=== PATIENT | female | born 1975 | race Caucasian/White ===

== ENCOUNTER 2018-02-12 15:09 | Emergency (ER) | payer OTHER, BC ==
[2018-02-12 15:34] LABS: #Basophils 0.1 thou/uL (0.0-0.2); #Lymphocytes 3.2 thou/uL (1.20-3.40); #Neutrophils 6.7 thou/uL (1.40-6.50); %Eosinophils 8.5 % (0.0-10.0); %Lymphocytes 26.7 % (21.0-51.0); %Neutrophils 55.8 % (42.0-75.0); Hemoglobin 13.8 g/dL (12.0-16.0); Mean Corpuscular HGB CONC 34.3 g/dL (32.0-36.0); Mean Corpuscular Hemoglobin 28.9 pg (27.0-31.0); Mean Corpuscular Volume 84.2 fL (78.0-98.0); Mean Platelet Volume 7.3 fL (7.4-10.4); Platelet Count 289 thou/uL (130-400); RBC Distribution Width 12.8 % (11.5-14.5); White Blood Cell (WBC) Count 11.9 thou/uL (4.8-10.8)
--- NOTE | 2018-02-12 15:44 | RAD ---
RADIOGRAPH CHEST 1 VIEW: HISTORY: A 42-year-old female with chest pain. FINDINGS: There are no air space densities, pulmonary edema, pneumothorax, or cardiomegaly. The lateral costop hrenic angles are sharp. IMPRESSION: No acute cardiopulmonary findings. jn [] POS: ADAIR
[2018-02-12 15:56] LABS: ALT (SGPT) 17 U/L (8-55); AST (SGOT) 15 U/L (5-34); Albumin 4.1 g/dL (3.5-5.0); Alkaline Phosphatase 132 U/L (40-150); Anion Gap 11 mmol/L (10-20); BUN (Urea Nitrogen) 10 mg/dL (7.0-18.7); CK (CPK) 40 U/L (29-168); Calc. Creatinine Clearance 0 mL/min (70-130); Calcium 9.3 mg/dL (7.8-10.44); Carbon Dioxide 26 mmol/L (22-29); Chloride 104 mmol/L (98-107); Estimated GFR-MDRD 77; Globulin 3.9 g/dL (2.4-3.5); Glucose 84 mg/dL (70-105); Lipase 21 U/L (8-78); Potassium 3.8 mmol/L (3.5-5.1); Sodium 137 mmol/L (136-145)
[2018-02-12 15:58] LABS: BHCG - Serum Negative (NEGATIVE); Pregs Control Background? CLEAR/WHITE (CLR/WHITE); Pregs Control Bar Appear? YES (CONTROL BAR)
[2018-02-12 16:01] LABS: CKMB 0.6 ng/mL (0-6.6); Troponin I Less than 0.010 ng/mL (< 0.028)
== END 2018-02-12 17:29 | disposition home or self-care (01) ==
LOC: ERS 15:09
DX: R00.2 Palpitations (principal); R07.9 Chest pain, unspecified; J45.909 Unspecified asthma, uncomplicated; Z79.899 Other long term (current) drug therapy
CPT/HCPCS: 71045; 80053; 82550; 82553; 83690; 84443; 84484; 84703; 85025; 85379; 93005; 96360

== ENCOUNTER 2018-07-07 06:41 | Outpatient (CLI) | payer OTHER, BC ==
--- NOTE | 2018-07-07 09:37 | ULT ---
ULTRASOUND ABDOMEN COMPLETE: HISTORY: Generalized abdominal pain in 42-year-old female, with nausea and vomiting. FINDINGS: Intraabdominal contents are poorly visualized because of body habitus. Liver: Diffusely increased echogenicity with signal drop out in the deep morales consistent with fatty liver. Gallbladder: Surgically absent. Common duct: Very poorly visualized. Spleen: No splenomegaly. Pancreas: Nonspecific sonographic appearance. Kidneys: No hydronephrosis. Abdominal aorta: Not visualized. Inferior vena cava: Not visualized. Ascites: None. IMPRESSION: 1. Hepatic steatosis. 2. Status post cholecystectomy. 3. Limited visualization of intraabdominal contents due to body habitus. ENEIDA Palacio POS: ADAIR
== END 2018-07-07 06:42 | disposition home or self-care (01) ==
LOC: BICULT 06:41
PROVIDERS: ATTEND Internal Medicine Gastroenterology
DX: R10.84 Generalized abdominal pain (principal); R11.0 Nausea; K21.9 Gastro-esophageal reflux disease without esophagitis; E66.01 Morbid (severe) obesity due to excess calories; K76.0 Fatty (change of) liver, not elsewhere classified; Z90.49 Acquired absence of other specified parts of digestive tract
CPT/HCPCS: 76700

== ENCOUNTER 2018-07-14 11:58 | Day surgery (SDC) | payer OTHER, BC ==
[2018-07-13 15:08] VITALS: BMI 47.2
[2018-07-14] MEDS ORDERED: PROPOFOL 200 MG/20 ML VIAL ONE (13:50)
--- NOTE | 2018-07-14 22:34 | OP ---
DATE OF PROCEDURE: 07/14/2018 PREPROCEDURE DIAGNOSES: 1. Epigastric right upper quadrant pain and left upper quadrant pain. 2. Normal ultrasound post cholecystectomy. 3. Normal chem profile and CBC. 4. Nonresponse PPI therapy. POSTPROCEDURE DIAGNOSIS: Normal EGD, biopsies taken for H pylori. RECOMMENDATIONS: Trial of Bentyl, low carb diet. Followup office 2 to 3 weeks. is contraindicated in this individual status post cholecystectomy, significant risk of pancreatitis. We have done that in the office already. ANESTHESIA: TIVA. DESCRIPTION OF PROCEDURE: The patient was informed of the risks, benefits, and possible complications of endoscopy including perforation, reaction to medication and aspiration, and informed consent was obtained. The patient was brought to the endoscopy suite, where she was sedated in the gradual fashion. Once she was comfortable, a bite block was placed into her oropharynx. The endoscope was advanced to the esophagus, stomach, second, and third portion of the duodenum and the scope was slowly removed. The esophagus, stomach, and duodenum were all normal. Biopsies were taken from the antrum of the stomach to rule out H pylori gastritis. Retroflexed views in the stomach were normal. The scope was removed. The patient tolerated the procedure well with no complications. Job ID: [id number]
== END 2018-07-14 16:00 | disposition home or self-care (01) ==
LOC: SDC 11:58
PROVIDERS: ATTEND Internal Medicine Gastroenterology
PROC: 0DB78ZX Excision of Stomach, Pylorus, Via Natural or Artificial Opening Endoscopic, Diagnostic (ICD-10-PCS; principal; 2018-07-14)
DX: K31.89 Other diseases of stomach and duodenum (principal); K21.9 Gastro-esophageal reflux disease without esophagitis; E66.01 Morbid (severe) obesity due to excess calories; Z68.42 Body mass index [BMI] 45.0-49.9, adult; Z79.52 Long term (current) use of systemic steroids; Z79.899 Other long term (current) drug therapy
CPT/HCPCS: 88305; 88312; J2704

== ENCOUNTER 2018-12-01 08:25 | Outpatient (CLI) | payer OTHER, BC | END 2018-12-01 08:26 | disposition home or self-care (01) | LOC: DTY/OP 08:25 | PROVIDERS: ATTEND Specialist | DX: Z01.818 Encounter for other preprocedural examination (principal); E66.01 Morbid (severe) obesity due to excess calories | CPT/HCPCS: 97802 ==

== ENCOUNTER 2019-04-04 12:13 | Emergency (ER) | payer OTHER, BC ==
[2019-04-04 12:38] LABS: #Basophils 0.1 thou/uL (0.0-0.2); #Eosinphils 0.9 thou/uL (0.0-0.7); #Lymphocytes 3.1 thou/uL (1.20-3.40); #Monocytes 0.9 thou/uL (0.11-0.59); #Neutrophils 6.8 thou/uL (1.40-6.50); %Basophils 0.8 % (0.0-1.0); %Eosinophils 7.8 % (0.0-10.0); %Lymphocytes 26.4 % (21.0-51.0); %Monocytes 7.5 % (0.0-10.0); %Neutrophils 57.5 % (42.0-75.0); Hemoglobin 13.8 g/dL (12.0-16.0); Mean Corpuscular HGB CONC 33.6 g/dL (32.0-36.0); Mean Corpuscular Hemoglobin 28.5 pg (27.0-31.0); Mean Corpuscular Volume 84.6 fL (78.0-98.0); Mean Platelet Volume 7.5 fL (7.4-10.4); Platelet Count 300 thou/uL (130-400); Red Blood Cell (RBC) Count 4.84 mill/uL (4.20-5.40); White Blood Cell (WBC) Count 11.8 thou/uL (4.8-10.8)
[2019-04-04] MEDS ORDERED: Ketorolac Tromethamine 60 MG/2 ML VIAL ONE (12:55)
[2019-04-04] MEDS ORDERED: Diazepam 10 MG/2 ML SYRINGE ONE (12:55)
[2019-04-04 12:56] LABS: Bacteria/HPF 4+ HPF (None Seen); Bilirubin Negative (Negative); Blood, Urine Negative (Negative); Clarity Turbid (Clear); Glucose, Urine (Dipstick) Normal (Negative); Leukocyte 25 Leu/uL (Negative); Nitrite Negative (Negative); Protein, Urine (Dipstick) 10 mg/dL (Neg-Trace); RBC/HPF 0-3 HPF (0-3); Urobilinogen Normal mg/dL (Less than 2)
[2019-04-04 12:58] LABS: Pregnancy Test - Urine (BHCG) Negative (Negative); Pregu Control Background? CLEAR/WHITE (CLR/WHITE); Pregu Control Bar Appear? YES (CONTROL BAR)
[2019-04-04 12:59] LABS: ALT (SGPT) 22 U/L (8-55); AST (SGOT) 18 U/L (5-34); Albumin 3.8 g/dL (3.5-5.0); Alkaline Phosphatase 116 U/L (40-110); Anion Gap 12 mmol/L (10-20); BUN (Urea Nitrogen) 8 mg/dL (7.0-18.7); Bilirubin, Total 0.9 mg/dL (0.2-1.2); Calc. Creatinine Clearance 0 mL/min (70-130); Calcium 9.4 mg/dL (7.8-10.44); Carbon Dioxide 25 mmol/L (22-29); Chloride 106 mmol/L (98-107); Estimated GFR-MDRD 72; Globulin 3.7 g/dL (2.4-3.5); Glucose 99 mg/dL (70-105); Protein, Total 7.5 g/dL (6.0-8.3); Sodium 139 mmol/L (136-145)
[2019-04-04] MEDS ORDERED: Ondansetron ODT 4 MG TAB ONE (13:05)
[2019-04-04] MEDS ORDERED: ISOVUE-370 76%-LOCM 1 ML ONE (13:18)
[2019-04-04] MEDS ORDERED: Morphine 4 MG/ML VIAL ONE ×2 (14:01→15:10)
[2019-04-04] MEDS ORDERED: cefTRIAXone\\ROCEPHIN 1 GM VIAL ONE (14:01)
[2019-04-04] MEDS ORDERED: Sodium Chloride 0.9% 100 ML ONE (14:01)
--- NOTE | 2019-04-04 14:55 | CT ---
CT ABDOMEN AND PELVIS WITH IV CONTRAST 04/04/2019 CLINICAL INFORMATION: Right flank pain with blood in urine. Surgical history includes cholecystectomy, hysterectomy, and ap pendectomy. Patient also surgical history involving the kidney. COMPARISON: 02/09/2010 Technique: Multiple contiguous axial CT images are obtained through the abdomen and pelvis with IV contrast. Cor onal reformatted images are provided. FINDINGS: Lower Chest: Minimal linear scar versus atelectasis at the left lung base Vessels: Abdominal aorta and iliac arteries are normal in caliber. Abdomen: Portal vein:Patent Gallbladder: Surgically absent. Liver: Diminished attenuation suggesting fatty infiltration. Spleen: Mildly prominent in AP dimensions but stable compared to study in 2009. Pancreas: within normal limits. Adrenals: within normal limits. Kidneys: No enhancing renal mass is seen. A subcentimeter hypodensity is seen in the posterior aspect midportion right kidney which is too small to characterize. No enhancing lesion is seen. There is no hydronephrosis, no ureteral calculi are seen bilaterally. No definitive renal calculus is apprecia dominga. Bowel: Scattered colonic diverticula are seen. Appendix: Not visualized. Patient reports history of prior appendectomy. Peritoneum: No ascites or free air; no fluid collection. Mesentery and Retroperitoneum: No enlarged mesenteric or retroperitoneal lymph nodes. Abdominal Wall: Tiny fat-containing umbilical hernia. Pelvis: Reproductive Organs: Evidence of hysterectomy. Pelvis within normal limits. Bladder: Mostly decompressed. Bones: within normal limits. IMPRESSION: 1. No acute findings are seen in the abdomen or pelvis. 2. Postsurgical changes related to cholecystectomy and hysterectomy. 3. Fatty infiltration of the liver. 4. Subtle subcentimeter too small to characterize hypodense lesion midportion right kidney. No enhanc ing renal lesion is seen. 5. Small fat-containing umbilical hernia.
== END 2019-04-04 16:19 | disposition home or self-care (01) ==
LOC: ERS 12:13
DX: N39.0 Urinary tract infection, site not specified (principal); M79.7 Fibromyalgia; J45.909 Unspecified asthma, uncomplicated; F41.9 Anxiety disorder, unspecified; Z79.51 Long term (current) use of inhaled steroids; Z79.899 Other long term (current) drug therapy; Z79.52 Long term (current) use of systemic steroids
CPT/HCPCS: 36415; 74177; 80053; 81003; 81015; 81025; 85025; 87086; 96361; 96365; 96372; 96375; 96376; J0696; J1885; J2270; J3360; J3490; Q0162; Q9966

== ENCOUNTER 2019-04-06 15:43 | Inpatient (IN) | payer OTHER, BC ==
[~2019-04-06 15:43] MED LIST: ISOVUE-370 76%-LOCM 1 ML ONE
[2019-04-06 16:24] LABS: #Basophils 0.1 thou/uL (0.0-0.2); #Monocytes 0.7 thou/uL (0.11-0.59); #Neutrophils 6.8 thou/uL (1.40-6.50); %Basophils 0.7 % (0.0-1.0); %Eosinophils 8.5 % (0.0-10.0); %Lymphocytes 25.8 % (21.0-51.0); %Monocytes 6.3 % (0.0-10.0); %Neutrophils 58.7 % (42.0-75.0); Hemoglobin 13.4 g/dL (12.0-16.0); Mean Corpuscular HGB CONC 32.9 g/dL (32.0-36.0); Mean Corpuscular Hemoglobin 27.9 pg (27.0-31.0); Mean Corpuscular Volume 84.9 fL (78.0-98.0); Mean Platelet Volume 7.5 fL (7.4-10.4); Platelet Count 301 thou/uL (130-400); Red Blood Cell (RBC) Count 4.81 mill/uL (4.20-5.40); White Blood Cell (WBC) Count 11.6 thou/uL (4.8-10.8)
[2019-04-06 16:43] LABS: ALT (SGPT) 19 U/L (8-55); AST (SGOT) 18 U/L (5-34); Albumin 3.9 g/dL (3.5-5.0); Alkaline Phosphatase 113 U/L (40-110); Anion Gap 14 mmol/L (10-20); BUN (Urea Nitrogen) 8 mg/dL (7.0-18.7); Bilirubin, Total 0.7 mg/dL (0.2-1.2); Calc. Creatinine Clearance 0 mL/min (70-130); Calcium 9.4 mg/dL (7.8-10.44); Carbon Dioxide 25 mmol/L (22-29); Chloride 107 mmol/L (98-107); Estimated GFR-MDRD 77; Globulin 3.6 g/dL (2.4-3.5); Glucose 89 mg/dL (70-105); Potassium 4.1 mmol/L (3.5-5.1); Protein, Total 7.5 g/dL (6.0-8.3); Sodium 142 mmol/L (136-145)
[2019-04-06] MEDS ORDERED: Ketorolac Tromethamine 30 MG/ML VIAL ONE (17:23)
[2019-04-06] MEDS ORDERED: Morphine 4 MG/ML VIAL ONE (17:23)
--- NOTE | 2019-04-06 18:34 | CT ---
CT OF ABDOMEN AND PELVIS PERFORMED WITH INTRAVENOUS CONTRAST ENHANCEMENT: 04/06/19 HISTORY: Left flank pain. History of UTI. The lung bases are clear of infiltrative process. There are fatty changes of the liver which measures 20 cm in length. The spleen is within normal limi ts of size. Pancreas region is unremarkable and gallbladder has been removed. Right and left adrenal glands and right and left kidneys are normal in size. No obstruction. No renal calculi. No evidence for pyelonephritis. No perinephric fat stranding. No significant periaortic or mesenteric adenopathy. CT OF PELVIS PERFORMED WITH CONTRAST ENHANCEMENT: There is no evidence of adenopathy, mass or free fluid. IMPRESSION: 1. No acute findings of the abdomen and pelvis. 2. Fatty change of the liver. 3. Postop cholecystectomy change. POS: NIR
[2019-04-06] MEDS ORDERED: HYDROmorphone 0.5 MG/0.5 ML SYRINGE ONE ×2 (19:36→23:36)
[2019-04-06] MEDS ORDERED: Diazepam 5 MG TAB ONE (20:17)
--- NOTE | 2019-04-06 22:45 | MRI ---
MRI Thoracic Spine W WO Con History: Pain Comparison: CT abdomen and pelvis same day Findings: Cord signal is normal. Intraosseous hemangioma of T7. No evidence for epidural abscess. No significant neural foraminal or spinal canal narrowing. Impression: No epidural abscess. No discitis osteomyelitis.
--- NOTE | 2019-04-06 22:49 | MRI ---
MRI Lumbar Spine W WO Con History: Pain Comparison: CT abdomen and pelvis same day Findings: No marrow infiltrative process. No discitis osteomyelitis. No epidural abscess. No signific ant spinal canal narrowing. Small disc osteophyte complex on the right at L3/L4 causes moderate neural foraminal narrowing and abutment of the exiting nerve root. Small broad-based posterior disc o steophyte complex L4/L5 causes mild bilateral neural foraminal narrowing. Impression: Low-grade spondylosis at L3/L4 and L4/L5. No epidural abscess. No discitis osteomyelitis.
[2019-04-07 01:16] VITALS: BMI 46.7
[2019-04-07] MEDS ORDERED: Acetaminophen 325 MG TAB PO PRN (01:22)
[2019-04-07] MEDS ORDERED: Ondansetron ODT 4 MG TAB SL PRN (01:22)
[2019-04-07] MEDS ORDERED: Ondansetron PF 4 MG/2 ML Vial IVP PRN ×2 (01:22→08:20)
[2019-04-07] MEDS ORDERED: HYDROcodone/Acetaminophen 5/325 mg Tablet PO PRN (01:22)
[2019-04-07] MEDS: HYDROcodone/Acetaminophen 5/325 mg Tablet PO PRN ×2 (05:01→10:12)
[2019-04-07] MEDS ORDERED: HYDROmorphone 0.5 MG/0.5 ML SYRINGE SLOW IVP PRN (08:20)
[2019-04-07] MEDS: predniSONE 5 MG TAB PO SCH (09:25)
[2019-04-07] MEDS: Fentanyl 100 MCG/2 ML VIAL SLOW IVP PRN ×3 (12:11→21:33)
--- NOTE | 2019-04-07 16:24 | RAD ---
Exam: 3 views lumbar spine HISTORY: Spondylolisthesis. Comparison: None FINDINGS: Five lumbar type vertebra. Lumbar spine vertebral body height is maintained. No fracture. No spondylolisthesis in the neutral position. No abnormal motion upon extension or flexion IMPRESSION: No evidence of spondylolisthesis. Transcribed Date/Time: 04/07/2019 4:49 PM
[2019-04-07] MEDS: Mometasone/Formoterol 120 PUFF INHALER INH SCH (18:08)
--- NOTE | 2019-04-07 18:27 | RAD ---
XR IVP WO Tomogram STANDARD History: Assess renal function Comparison: CT examination prior day Findings: The renal calyces are sharp. No stricture or mass. Urinary bladder is unremarkable. Possible small urethral diverticulum Impression: 1. Normal appearance of the renal collecting systems. 2. Possible small urethral diverticulum.
--- NOTE | 2019-04-07 22:09 | HP ---
CHIEF COMPLAINT: Intractable back and flank pain bilaterally. HISTORY OF PRESENT ILLNESS: The patient is a 43-year-old female who presents to the ER with bilateral flank pain for which she can get no relief. She presented initially to the ER on the previous Friday with these same complaints and was diagnosed with a UTI. She was begun on antibiotics, but since that time she has gotten steadily worse until she cannot tolerate the back pain. She states she has mild burning during urination, frequent urination. Denies any vaginal discharge. She reports having a temperature over 100 and that started initially on previous Friday and it gotten worse until she came to the emergency room the 1st time on Friday. The pain is bilateral, very intense to the lightest touch, pre-eruptive shingles have been considered, but it is bilateral. She does have a history of ureter reimplantation at the age of 4 and has had numerous renal infections, kidney infections since that time. She does not have an appendix or gallbladder. She has been on chronic steroid therapy for severe asthma. There is concern that she may have an occult spinal fracture causing this bilateral presentation of acute skin sensitivity and pain, this is intractable. It hurts for her to lay down, any pressure on the back and actually feels better when she is walking. She has had sweats, temperatures to 100.4. She has also had nausea and vomiting. Her pain has been treated with morphine and several other medications and has not been effective. She is being placed in the hospital for further evaluation and pain management. PAST MEDICAL HISTORY: Significant for the aforementioned urinary tract disorder requiring reimplantation of her ureter at the age of 4. She also has fibromyalgia and severe asthma requiring steroid therapy. She also has obstructive sleep apnea, severe allergies, chronic sinusitis, migraine headaches, GERD. She has had chest pain in the past, but she had a stress test that returned completely normal back in 2015. PAST MEDICAL HISTORY: Her prior surgeries include the aforementioned adenoidectomy, tonsillectomy, appendectomy, cholecystectomy and ureteral surgery at age of 4. She has also had a hysterectomy. PSYCHIATRIC HISTORY: Negative. SOCIAL HISTORY: She lives at her home with her family. Denies alcohol use, drug use. Does not smoke. FAMILY HISTORY: Significant for diabetes and hypertension. ALLERGIES: SHE HAS NO KNOWN DRUG ALLERGIES. MEDICATIONS: Include: 1. Albuterol nebulized every 4 hours as needed. 2. Dulera 100/5 two puffs daily. 3. Spiriva 18 mcg inhaled daily. 4. Prednisone 2 mg p.o. daily. 5. Dexilant 60 mg daily. 6. Gabapentin 300 mg b.i.d. 7. Tramadol 50 mg q.6 hours p.r.n. 8. She has been taking Keflex 500 mg q.i.d. REVIEW OF SYSTEMS: At the time of admission, she denies chills, but has had low-grade fever. Denies fatigue. HEENT: Denies sores, ulcers, or drainage from eyes, ears, nose, or throat. CARDIOVASCULAR: Denies chest pain or palpitations. RESPIRATORY: Chronically dyspneic, but denies cough. Recurrent wheezing. GI: Significant for severe abdominal pain suprapubically that moves around to her bilateral flank area. She reports nausea and vomiting, but denies constipation. She denies diarrhea. : Reports significant dysuria, but denies frequency. Denies blood in urine or stool. MUSCULOSKELETAL: Has severe back pain, bilateral flank pain, but has no history of trauma. SKIN: No new rashes or lesions. NEUROLOGIC: She feels lightheaded, but her mental status is intact. She denies any areas of hypesthesia, anesthesia, headache or paralysis. HEMOLYTIC/LYMPH: Denies any areas of swelling, ecchymosis or edema. PHYSICAL EXAMINATION: At the time of admission, blood pressure 115/83, pulse 102, respirations 16, temperature 98.9, pain at a 9/10 scale, O2 saturation 94% on room air. GENERAL: This is a morbidly obese female, alert, oriented, cooperative. HEENT: Normocephalic, atraumatic. Pupils are equal, round, and reactive to light. Extraocular muscles are intact. TMs, nares, and pharynx are clear. NECK: Supple. Trachea midline. No adenopathy. CHEST: Diminished breath sounds throughout, but no wheezing or rhonchi. BREAST: Deferred. HEART: Regular rate and rhythm without murmur. ABDOMEN: Exquisitely tender bilaterally, periumbilically down to the suprapubic area. BACK: Exquisite tenderness even to light touch in bilateral CVA areas on board. SKIN: Does not show any herpetic outbreak or lesions, ecchymotic areas of bruising. : Deferred. BREASTS: Deferred. MUSCULOSKELETAL: Noteworthy for the aforementioned back pain, but no painful joints in upper and lower extremities. Normal range of motion noted. SKIN: Has no outbreaks as previously mentioned. NEUROLOGIC: Cranial nerves are intact. Gait and cerebral function intact. Sensory exam, exquisitely tender to the lightest touch in bilateral CVA areas around suprapubically. LABORATORY DATA: Lab work thus far shows WBCs 11.6, hemoglobin 13.4, hematocrit 40.8, platelets at 301. Sodium 142, potassium 4.1, chloride 107, CO2 25, BUN is 8, creatinine 0.81 with a GFR of 77, glucose 89, calcium 9.4, alkaline phosphatase elevated slightly at 113, globulin elevated at 306. IMAGING: The lumbar spine x-ray shows no evidence of spondylolisthesis. Voiding cystourogram is still pending. The intravenous pyelogram shows normal appearance of the renal collecting systems with possible urethral diverticulum. MRI of the thoracic spine shows no epidural abscess or diskitis or osteomyelitis. MRI of the lumbar shows low-grade spondylosis at L3-L4 and L4-L5, but no abscess or diskitis or osteomyelitis either. The CT of the abdomen and pelvis shows no acute findings. Fatty liver is noted. ASSESSMENT: 1. Intractable costovertebral tenderness, pain that radiates to the suprapubic area. 2. History of cystitis/urinary tract infection with failed outpatient treatment. 3. Severe asthma. PLAN: Plan will be further evaluation with pain management and treatment, but there are suggestions and serial re-evaluation. Job ID: [id number]
--- NOTE | 2019-04-07 22:51 | CON ---
DATE OF CONSULTATION: 04/07/2019 REASON FOR CONSULTATION: Flank pain. HISTORY OF PRESENT ILLNESS: The patient is a 43-year-old female who presents with pain in the bilateral flank and lower back, which is severe and debilitating. The patient states that she had a urinary tract infection, which was complicated by a kidney infection approximately 2 weeks ago. She was placed on Bactrim for 1 wk. She was doing well until April 02 when she began to have severe bilateral flank pain which radiated down to the buttock and then also pain in the bilateral lower quadrants of the abdomen. This progressed and became more severe as the weekend went on. This was associated with nausea, vomiting, fever, and chills. She also felt dizzy. The pain was a pressure-like sensation was up to a 10/10 pain at times. She did admit to hematuria on April 03 and on the , the pain had increased to the point where she finally went to the emergency room. In the emergency room, they had ran some tests and placed her on Keflex and tramadol. She was sent home. However, the pain progressed over the week. She had also been placed on tramadol at this point, which she says did not help with her pain. The patient' s pain persisted until April 06 when she came back to the emergency room due to severe debilitating pain, which was uncontrolled, was admitted to the hospital. Overnight, she has had consistent pain, which waxes and wanes. She has been treated with Dilaudid and also fentanyl with very limited relief. She said the fentanyl 100 mcg IV seems to help for approximately 35 minutes and then the pain comes back. The pain is described as sharp and pressure-like. It is worse with lying down and better with standing. The patient has been able to the eat, however, does admit to nausea during high-pain periods. She has vomited several times in the last 2 days due to the pain being so intense. No trouble with her bowel or bladder. No constipation or diarrhea. Though she admits to fever, she has not had a documented fever since she has been here. The hematuria she notes that was on the tissue paper after she wiped. There was no macroscopic hematuria, however, microscopic may be existent. REVIEW OF SYSTEMS: GENERAL: The patient admits to night sweats and fatigue as well as fever and chills like sensations. EAR, NOSE, AND THROAT: Positive for nasal congestion. Negative for mass or sore throat. CARDIOVASCULAR: Positive for some shortness of breath when lying flat. Denies swelling in the legs. Denies dyspnea on exertion. PULMONARY: Denies shortness of breath, cough, wheezing, or snoring. GASTROINTESTINAL: Positive for some bilateral lower quadrant abdominal pain, associated with times when she has flank pain. Positive for nausea and vomiting. Negative for constipation or diarrhea. MUSCULOSKELETAL: Denies joint pain or muscle pain except for in the back. INTEGUMENTARY: Denies skin lesions, rashes, or dry skin. NEUROLOGICAL: Denies headache, dizziness, or numbness. ALLERGY AND IMMUNOLOGY: She does admit to asthma which had been treated with prednisone, usually approximately 10 mg per day, however, has taken up to 60 mg a day at some point, but severe asthma. PAST MEDICAL HISTORY: 1. Positive for asthma. 2. Ear infections. 3. Reflux. 4. Anemia, anxiety, obesity. PAST SURGICAL HISTORY: T and A, ear surgery, hysterectomy, lap choly, lap appy, kidney surgery 5 years ago. FAMILY HISTORY: Noncontributory. Father and mother are alive with diagnosed of hypertension. Siblings are alive, diagnosed with hypertension and asthma. SOCIAL HISTORY: Nonsmoker. Does not drink alcohol or use drugs. , lives at home. ALLERGIES: NKDA. PHYSICAL EXAMINATION: GENERAL: Well-developed, well-nourished, obese, no immediate distress. Alert and oriented x3. HEAD AND NECK: Pupils are equally round and reactive to light and accommodation. HEART: Regular rate and rhythm. No murmurs. CHEST: Bilateral breath sounds. Clear to auscultation. Symmetric nonlabored respirations. ABDOMEN: Soft, nontender. Normal bowel sounds. Nonpalpable masses or hernia. She does have some tenderness to palpation in the bilateral lower quadrants. NEUROLOGICAL: No decrease in sensation. Moving all extremities. Reflexes are intact in the bilateral patella and bilateral Achilles. MUSCULOSKELETAL: 5/5 strength in bilateral upper and lower extremities. Severe tenderness to palpation even to superficial palpation of the bilateral flanks. Extension of lumbar spine leads to pain as well. VITAL SIGNS: Vital signs which were last taken are temperature 97.6, pulse of 75, respirations 20, O2 saturation 93 on room air, and blood pressure 120/83. LABORATORY DATA: Most recent results which include CBC yesterday, white blood cell count of 11.6, hemoglobin and hematocrit are normal, platelet count normal. Coag studies were not taken. Chemistries from the ER visit last week were unremarkable. Urine which was taken on April 04, showed some white blood cells 7 to 10 HPF, squamous epithelial cells, however, were high, and bacteria 4+ HPF. Negative screen. Urine was clear and 0 to 3 red blood cells. Of course, this was after she had received Bactrim for two weeks. DIAGNOSTIC DATA: On April 06, abdominal and pelvic CT scan revealed no acute finding in the abdomen or pelvis. There is some fatty change of the liver. Postop cholecystectomy changes. Lumbar spine MRI revealed low-grade spondylosis at L3-4 and L4-5. No epidural abscess. No diskitis. No signs of nerve root compression whatsoever. Thoracic MRI is unremarkable. Flexion-extension film which I ordered earlier is negative. ASSESSMENT AND PLANS: 1. Flank pain. 2. Lower back pain. Given the patient's complaint of bilateral flank pain as well as her history of a kidney infection two weeks ago, I believe this may be kidney related. I would advise consulting Nephrology to rule out any nephrologic causes of pain. If an etiology is not found, and she does continue to have flank pain and blood in her urine whether macroscopic or microscopic, one diagnosis of concern is hemolytic loin pain syndrome. However, this is a diagnostic of exclusion. The patient may have pain from her lumbar spondylosis; however, it is unlikely to produce pain that is this severe and acute. Since she has recently been on steroids for her asthma and she recently was treated for a kidney infection, I do not wish to increase her steroids at this point unless we have a specific diagnosis. I would continue the medications as ordered with fentanyl IV q.2 hours p.r.n. breakthrough pain until we have an established diagnosis. We will await Nephrology consult and further recommendations to follow. Job ID: [id number] [id number]
[2019-04-08] MEDS: Fentanyl 100 MCG/2 ML VIAL SLOW IVP PRN ×6 (04:38→21:50)
[2019-04-08 06:26] LABS: #Basophils 0.1 thou/uL (0.0-0.2); #Eosinphils 0.9 thou/uL (0.0-0.7); #Lymphocytes 2.8 thou/uL (1.20-3.40); #Monocytes 0.8 thou/uL (0.11-0.59); #Neutrophils 5.7 thou/uL (1.40-6.50); %Basophils 0.5 % (0.0-1.0); %Eosinophils 8.9 % (0.0-10.0); %Lymphocytes 27.4 % (21.0-51.0); %Monocytes 7.6 % (0.0-10.0); %Neutrophils 55.6 % (42.0-75.0); Hemoglobin 12.7 g/dL (12.0-16.0); Mean Corpuscular HGB CONC 32.9 g/dL (32.0-36.0); Mean Corpuscular Hemoglobin 28.2 pg (27.0-31.0); Mean Corpuscular Volume 85.5 fL (78.0-98.0); Mean Platelet Volume 8.1 fL (7.4-10.4); Platelet Count 283 thou/uL (130-400); RBC Distribution Width 14.1 % (11.5-14.5); Red Blood Cell (RBC) Count 4.51 mill/uL (4.20-5.40); White Blood Cell (WBC) Count 10.2 thou/uL (4.8-10.8)
[2019-04-08 06:44] LABS: Anion Gap 11 mmol/L (10-20); BUN (Urea Nitrogen) 6 mg/dL (7.0-18.7); Calc. Creatinine Clearance 201 mL/min (70-130); Calcium 8.7 mg/dL (7.8-10.44); Carbon Dioxide 24 mmol/L (22-29); Chloride 108 mmol/L (98-107); Estimated GFR-MDRD 85; Glucose 108 mg/dL (70-105); Potassium 3.6 mmol/L (3.5-5.1); Sodium 139 mmol/L (136-145)
[2019-04-08] MEDS: Mometasone/Formoterol 120 PUFF INHALER INH SCH ×2 (07:07→18:32)
[2019-04-08] MEDS: predniSONE 5 MG TAB PO SCH (08:02)
--- NOTE | 2019-04-08 08:44 | CON ---
DATE OF CONSULTATION: 04/08/2019 REQUESTING PHYSICIAN: Jhoan Raymond MD REASON FOR CONSULTATION: Flank pain. HISTORY OF PRESENT ILLNESS: Ms. Hung is a 43-year-old female who has history of recurrent UTIs. Per the patient report, she has history of a young child of having what sounds to be bilateral ureteral reimplant. She has not seen a urologist since that time. Three days ago, the patient developed severe bilateral flank pain radiating around to her bilateral lower quadrants. The patient presented to the emergency department and a CT was performed, which was unremarkable. At that time, she was diagnosed with UTI. Urine culture on 04/04/2019 was, however, negative. The patient reports subjective fever to 100.4 at home. She has not had any fever as an inpatient. The patient's pain persisted and she was admitted. A CT scan was performed on 04/06/2019, which demonstrated completely normal collecting systems and ureters. There was no evidence of any hydronephrosis. The patient also has had both an intravenous pyelogram as well as a voiding cystourethrogram. On the IVP, there is no significant finding present. There is no hydronephrosis. The ureters appear normal. There is a question of a possible small urethral diverticulum secondary to contrast pooling in the area of the urethra. Voiding cystourethrogram was unremarkable, although voiding images were not yet available for review. The patient continues to have significant bilateral flank pain. She states she has had associated nausea and vomiting as well as she states she has recurrent UTIs an outpatient, has been treated for 8 UTIs over the past year. No history of urolithiasis. The patient reports one episode of gross hematuria prior to presentation to the hospital, this has resolved. She has no other complaints. REVIEW OF SYSTEMS: Full 12-point review of systems was performed and is negative other than that mentioned in HPI. PAST MEDICAL HISTORY: 1. History of bilateral ureteral reflux. 2. Fibromyalgia. 3. Asthma. 4. Obstructive sleep apnea. 5. Seasonal allergies. 6. Chronic sinusitis. 7. Migraine headaches. 8. Gastroesophageal reflux disease. PAST SURGICAL HISTORY: 1. Adenoidectomy. 2. Tonsillectomy. 3. Appendectomy. 4. Cholecystectomy. 5. What sounds to be bilateral ureteral reimplant at age of 4, although on the IVP, this does not appear to be a cross-trigonal reimplant, if one was done. 6. Hysterectomy. SOCIAL HISTORY: She lives at home with her family. No alcohol, tobacco, or illicit drugs. FAMILY HISTORY: Noncontributory. ALLERGIES: NO KNOWN DRUG ALLERGIES. MEDICATIONS: 1. Albuterol. 2. Dulera. 3. Spiriva. 4. Prednisone. 5. Dexilant. 6. Gabapentin. 7. Tramadol. 8. Currently on Keflex 500 mg 4 times per day. PHYSICAL EXAMINATION: VITAL SIGNS: Temperature 98.0, pulse 90, respirations 18, blood pressure 107/74, oxygen saturation 93% on room air. GENERAL: She is alert and oriented x3, in no apparent distress. HEENT: Normocephalic, atraumatic. NECK: Supple. No masses or lymphadenopathy. CARDIOVASCULAR: Regular rate and rhythm. PULMONARY: Breathing unlabored. ABDOMEN: Soft. Mildly tender to palpation in bilateral lower quadrants. No rebound or guarding. Positive bilateral flank tenderness to palpation. No suprapubic tenderness to palpation. No suprapubic fullness. BACK: Bilateral low lumbar paraspinal area, severely tender to palpation. EXTREMITIES: Warm, well perfused. No edema. NEUROLOGIC: No focal deficits. LABORATORY DATA: White blood cell count at admission was 11.6, currently is 10.2, hemoglobin 12.7, hematocrit 38.5, platelets 283. Sodium 139, potassium 3.6, chloride 108, bicarb 24, BUN 6, creatinine 0.74. Urinalysis, negative for significant blood, 7 to 10 white blood cells per high-power field, many squamous epithelial cells per high-power field, 4+ bacteria, nitrite negative, leukocyte esterase negative, 04/04/2019. ASSESSMENT: A 43-year-old female with recurrent uncomplicated urinary tract infections and flank pain. PLAN: I have reviewed the patient's lab work as well as all of her imaging including her CT of the abdomen and pelvis, intravenous pyelogram, and voiding cystourethrogram. There is no urologic abnormality noted on any of these imaging studies. There is no hydroureteronephrosis. No stones. There currently is not any imaging to support a urologic cause of her flank pain. Per her report, she is being treated for UTI prior to her admission, although it is unclear whether or not this was a culture-proven UTI. The urinalysis on 04/04/2019, appears consistent with contaminant as there were many squamous epithelial cells present and significant bacteria and the urine culture demonstrates mixed skin charly only. There does not appear to be an ongoing urinary tract infection. I believe that this pain is secondary to musculoskeletal etiology. For her uncomplicated recurrent UTIs, she can follow up with Urology as an outpatient, if necessary. There is no indication for urologic intervention at this time. Thank you for allowing me to participate in the care of this patient. Job ID: [id number]
[2019-04-08] MEDS ORDERED: Ketorolac Tromethamine 30 MG/ML VIAL IVP PRN (09:12)
[2019-04-08] MEDS ORDERED: Ketorolac Tromethamine 30 MG/ML VIAL IVP SCH (09:15)
--- NOTE | 2019-04-08 10:16 | RAD ---
VOIDING CYSTOURETHROGRAM: HISTORY: Evaluation for possible reflux, given that the patient has had previously implanted ureters bilateral ly. EXPOSURE: 1.6 minutes 387.4 mGy FINDINGS: Initial float remover radiographs demonstrate a nonspecific bowel gas pattern. The patient administered a total of 300 mL of contrast in a retrograde fashion. Contrast opacifies th e bladder. There is no evidence of vesicoureteral reflux while filling the bladder. The Kelley cathete r was removed. The patient did try to urinate and a small amount of urine did pass. Note, the bladder did appear to contract during attempt of micturition. There was no evidence of reflux while attempti ng to urinate. IMPRESSION: No evidence of reflux into the left or right ureter while filling the bladder or upon the attempt of voiding. A small amount of urine was voided but the amount was not enough to assess the urethra. POS: OFF
[2019-04-08 12:37] LABS: Bacteria/HPF 4+ HPF (None Seen); Bilirubin Negative (Negative); Blood, Urine Trace (Negative); Clarity Extra Turbid (Clear); Glucose, Urine (Dipstick) Normal (Negative); Leukocyte 500 Leu/uL (Negative); Nitrite Negative (Negative); Protein, Urine (Dipstick) 10 mg/dL (Neg-Trace); Squamous Epithelial Greater than 50 HPF (0-3); Transitional Epithelial 0-3 HPF (None Seen); Urobilinogen Normal mg/dL (Less than 2); WBC/HPF 21-50 HPF (0-3)
[2019-04-08] MEDS: Lactated Ringer's 1,000 ML IV SCH (16:22)
[2019-04-08] MEDS: cefTRIAXone\\ROCEPHIN 1 GM in Sodium Chloride 0.9% 100 ML IVPB SCH (18:33)
--- NOTE | 2019-04-08 21:59 | CON ---
DATE OF CONSULTATION: HISTORY OF PRESENT ILLNESS: Ms. Hung is a 43-year-old white female, who was admitted for flank pain. She has been diagnosed with frequent UTIs in the past. Concerned whether the flank pain may be related to an underlying renal problem or her UTI. The patient has also been evaluated by Urology for the flank pain. Currently, the feeling is simply to observe this patient. No urological intervention will be done. Please note, this patient has had multiple imaging of the genitourinary tract. Kidneys showed no hydronephrosis. No abscess noted. The ureters were reported as normal. REVIEW OF SYSTEMS: Positive for flank pain. Denies any dysuria. No chest pain or shortness of breath. No diarrhea. No constipation. No productive cough. No fever or chills. No sore throat. No syncopal episode. Appetite and energy level are fair. Denies any dysuria. No hematochezia. No melena. No hematemesis. PAST MEDICAL HISTORY: History of vesicoureteral reflux as a child, which was surgically corrected by Dr. Edgar, fibromyalgia, asthma, obstructive sleep apnea, chronic sinusitis, migraine, GERD. PAST SURGICAL HISTORY: Status post urological surgery for a more likely bilateral ureter implant at age 4, status post hysterectomy, status post cholecystectomy, status post appendectomy, status post tonsillectomy. SOCIAL HISTORY: The patient is . Lives in [place]. 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 No smoking. No alcohol. No IV drug abuse. Active lifestyle. ALLERGIES: NO KNOWN DRUG ALLERGIES. TRAUMA: None. IMMUNIZATIONS: Up to date. HOSPITALIZATIONS: Please see past medical history. MEDICATIONS: 1. DuoNeb b.i.d. 2. Fentanyl IV q.2 p.r.n. 3. Dilaudid 0.5 mg IV q.3 p.r.n. 4. Toradol 30 mg IV q.6. 5. Dulera as directed. 6. Zofran 8 mg IV q.6. 7. Protonix 40 mg once a day. 8. Prednisone 10 mg once a day. Please note, the patient was previously on Keflex at 500 mg q.i.d. PHYSICAL EXAMINATION: VITAL SIGNS: Blood pressure is 107/74, heart rate 90, respiratory rate 18, temperature 98, and pulse ox 93%. GENERAL: Awake, alert, obese, comfortable, not in overt distress. SKIN: Adequate turgor. HEENT: Pinkish conjunctivae. Anicteric sclerae. No neck mass. No carotid bruits. No JVD. CHEST: No deformities. LUNGS: Clear breath sounds. HEART: Normal sinus rhythm. No murmur. No gallops or rubs. ABDOMEN: Globular, soft, nontender. No masses. EXTREMITIES: Trace edema. NEUROLOGICAL: Moving all extremities. No tremors. No asterixis. No ataxia. Oriented to 3 spheres. LABORATORY DATA: April 08, 2019; urinalysis shows specific gravity of 1.021, RBC reported as 7 to 10, WBC 21 to 50, urine bacteria 4+. April 04, 2019, urinalysis; RBC 0 to 3, WBC 7 to 10. August 10, 2014, urinalysis; WBC 7 to 10, RBC 0 to 3. Sodium 139, potassium 3.6, chloride 108, carbon dioxide 24, BUN 6, creatinine 0.74, glucose 108, calcium 8.7. April 06, 2019; BUN 8, creatinine 0.81. April 04, 2019; BUN 8, creatinine 0.86. April 02, 2019; BUN 8, creatinine 0.76. Albumin 3.8. April 07, 2019, voiding cystourethrogram. No evidence of reflux into the left or right ureter. April 06, 2019; CT scan of the abdomen and pelvis, no acute findings noted. Kidneys were normal size. No evidence of pyelonephritis or perinephric fat stranding. ASSESSMENT AND PLAN: Flank pain-this is less likely from intrinsic renal problem. The renal function is normal. The urine sediment is active suggesting more of UTI per se. There is no overt evidence of stones at the present time. Urology has evaluated this patient and the feeling is there is no urological etiology for the flank pain at the present time. I would suggest supportive care. The patient's urine is very concentrated. Urinalysis was suggestive of UTI and for that reason, we will be doing a urine [employer] with this patient. For the moment, we will start the patient on normal saline at 125 mL/hour. The patient's DRE has also been ordered due to the hematuria. I doubt this patient has underlying lupus nephritis in the absence of significant proteinuria at the present time. Overall agree with current management. Recheck basic metabolic profile, CBC in a.m. Job ID: [id number]
[2019-04-09] MEDS: Lactated Ringer's 1,000 ML IV SCH ×4 (01:30→22:37)
[2019-04-09] MEDS: Fentanyl 100 MCG/2 ML VIAL SLOW IVP PRN ×5 (01:47→22:33)
[2019-04-09 06:53] LABS: #Basophils 0.1 thou/uL (0.0-0.2); #Eosinphils 0.8 thou/uL (0.0-0.7); #Lymphocytes 2.9 thou/uL (1.20-3.40); #Monocytes 0.6 thou/uL (0.11-0.59); #Neutrophils 5.4 thou/uL (1.40-6.50); %Basophils 0.5 % (0.0-1.0); %Eosinophils 8.4 % (0.0-10.0); %Lymphocytes 29.6 % (21.0-51.0); %Monocytes 6.5 % (0.0-10.0); %Neutrophils 54.9 % (42.0-75.0); Hemoglobin 12.2 g/dL (12.0-16.0); Mean Corpuscular HGB CONC 32.9 g/dL (32.0-36.0); Mean Corpuscular Hemoglobin 28.1 pg (27.0-31.0); Mean Corpuscular Volume 85.4 fL (78.0-98.0); Mean Platelet Volume 7.7 fL (7.4-10.4); Platelet Count 267 thou/uL (130-400); RBC Distribution Width 14.2 % (11.5-14.5); Red Blood Cell (RBC) Count 4.36 mill/uL (4.20-5.40); White Blood Cell (WBC) Count 9.8 thou/uL (4.8-10.8)
[2019-04-09] MEDS: Mometasone/Formoterol 120 PUFF INHALER INH SCH ×2 (07:17→18:47)
[2019-04-09 07:18] LABS: Anion Gap 9 mmol/L (10-20); BUN (Urea Nitrogen) 8 mg/dL (7.0-18.7); Calc. Creatinine Clearance 223 mL/min (70-130); Calcium 8.6 mg/dL (7.8-10.44); Carbon Dioxide 25 mmol/L (22-29); Chloride 108 mmol/L (98-107); Estimated GFR-MDRD Greater than 90; Glucose 105 mg/dL (70-105); Potassium 3.3 mmol/L (3.5-5.1); Sodium 139 mmol/L (136-145)
[2019-04-09] MEDS: Acetaminophen/Codeine 30-300mg Tablet PO PRN ×3 (08:09→20:03)
[2019-04-09] MEDS: predniSONE 5 MG TAB PO SCH (08:11)
[2019-04-09] MEDS: Ampicillin/Sulbactam 3 GM in Sodium Chloride 0.9% 100 ML IVPB SCH ×3 (10:17→20:08)
[2019-04-09 15:36] LABS: ANA Symphony (Qualitative) Negative (Negative); ANA Symphony (Quantitative) 0.1 Ratio (< 0.7 Negative); dsDNA IgG Antibody 0.8 IU/mL (<10 Negative)
[2019-04-09] MEDS: cefTRIAXone\\ROCEPHIN 1 GM in Sodium Chloride 0.9% 100 ML IVPB SCH (17:07)
[2019-04-10] MEDS: Ampicillin/Sulbactam 3 GM in Sodium Chloride 0.9% 100 ML IVPB SCH ×4 (01:24→20:04)
[2019-04-10] MEDS: Acetaminophen/Codeine 30-300mg Tablet PO PRN ×3 (04:52→18:07)
[2019-04-10] MEDS: Mometasone/Formoterol 120 PUFF INHALER INH SCH ×2 (07:05→19:23)
[2019-04-10 08:39] LABS: #Basophils 0.1 thou/uL (0.0-0.2); #Eosinphils 0.7 thou/uL (0.0-0.7); #Lymphocytes 3.2 thou/uL (1.20-3.40); #Monocytes 0.6 thou/uL (0.11-0.59); #Neutrophils 4.4 thou/uL (1.40-6.50); %Basophils 0.9 % (0.0-1.0); %Eosinophils 7.6 % (0.0-10.0); %Lymphocytes 35.8 % (21.0-51.0); %Monocytes 6.6 % (0.0-10.0); Hemoglobin 11.8 g/dL (12.0-16.0); Mean Corpuscular HGB CONC 31.9 g/dL (32.0-36.0); Mean Corpuscular Hemoglobin 28.7 pg (27.0-31.0); Mean Platelet Volume 7.7 fL (7.4-10.4); Platelet Count 243 thou/uL (130-400); RBC Distribution Width 14.5 % (11.5-14.5); Red Blood Cell (RBC) Count 4.12 mill/uL (4.20-5.40); White Blood Cell (WBC) Count 9.1 thou/uL (4.8-10.8)
[2019-04-10] MEDS: predniSONE 5 MG TAB PO SCH (08:58)
[2019-04-10 09:00] LABS: Anion Gap 10 mmol/L (10-20); BUN (Urea Nitrogen) 8 mg/dL (7.0-18.7); Calc. Creatinine Clearance 210 mL/min (70-130); Calcium 8.6 mg/dL (7.8-10.44); Carbon Dioxide 26 mmol/L (22-29); Chloride 105 mmol/L (98-107); Estimated GFR-MDRD 89; Glucose 113 mg/dL (70-105); Potassium 3.5 mmol/L (3.5-5.1); Sodium 137 mmol/L (136-145)
[2019-04-10] MEDS: Lactated Ringer's 1,000 ML IV SCH ×2 (11:28→18:06)
[2019-04-10] MEDS: Fentanyl 100 MCG/2 ML VIAL SLOW IVP PRN ×2 (15:12→21:26)
[2019-04-10] MEDS: cefTRIAXone\\ROCEPHIN 1 GM in Sodium Chloride 0.9% 100 ML IVPB SCH (18:07)
[2019-04-11] MEDS: Ampicillin/Sulbactam 3 GM in Sodium Chloride 0.9% 100 ML IVPB SCH ×2 (01:16→08:25)
[2019-04-11] MEDS: Acetaminophen/Codeine 30-300mg Tablet PO PRN ×2 (03:23→08:33)
[2019-04-11] MEDS: Mometasone/Formoterol 120 PUFF INHALER INH SCH (06:42)
[2019-04-11 07:37] LABS: #Basophils 0.1 thou/uL (0.0-0.2); #Eosinphils 0.6 thou/uL (0.0-0.7); #Lymphocytes 3.3 thou/uL (1.20-3.40); #Monocytes 0.7 thou/uL (0.11-0.59); #Neutrophils 5.7 thou/uL (1.40-6.50); %Basophils 0.6 % (0.0-1.0); %Eosinophils 5.9 % (0.0-10.0); %Lymphocytes 32.1 % (21.0-51.0); %Monocytes 6.7 % (0.0-10.0); %Neutrophils 54.7 % (42.0-75.0); Hemoglobin 12.9 g/dL (12.0-16.0); Mean Corpuscular HGB CONC 32.2 g/dL (32.0-36.0); Mean Corpuscular Hemoglobin 28.2 pg (27.0-31.0); Mean Corpuscular Volume 87.8 fL (78.0-98.0); Mean Platelet Volume 7.5 fL (7.4-10.4); Platelet Count 263 thou/uL (130-400); RBC Distribution Width 14.4 % (11.5-14.5); Red Blood Cell (RBC) Count 4.56 mill/uL (4.20-5.40); White Blood Cell (WBC) Count 10.3 thou/uL (4.8-10.8)
[2019-04-11 07:40] VITALS: BP 115/81; TEMP 98.2
[2019-04-11 07:52] LABS: Anion Gap 12 mmol/L (10-20); BUN (Urea Nitrogen) 7 mg/dL (7.0-18.7); Calc. Creatinine Clearance 219 mL/min (70-130); Calcium 8.9 mg/dL (7.8-10.44); Carbon Dioxide 24 mmol/L (22-29); Chloride 106 mmol/L (98-107); Estimated GFR-MDRD Greater than 90; Glucose 79 mg/dL (70-105); Potassium 3.7 mmol/L (3.5-5.1); Sodium 138 mmol/L (136-145)
[2019-04-11] MEDS: predniSONE 5 MG TAB PO SCH (08:24)
== END 2019-04-11 11:04 | disposition home or self-care (01) | DRG 392 ==
LOC: ERS 15:43 → T4-B 04-07 01:11 → OBSVTOIN 04-07 01:11
PROVIDERS: ADMIT Specialist; ATTEND Specialist
DX: R10.9 Unspecified abdominal pain (principal); Z68.42 Body mass index [BMI] 45.0-49.9, adult; K21.9 Gastro-esophageal reflux disease without esophagitis; D64.9 Anemia, unspecified; E66.9 Obesity, unspecified; G47.33 Obstructive sleep apnea (adult) (pediatric); G43.909 Migraine, unspecified, not intractable, without status migrainosus; Z90.49 Acquired absence of other specified parts of digestive tract; Z79.899 Other long term (current) drug therapy
CPT/HCPCS: 36415; 51600; 72120; 72157; 72158; 74177; 74410; 74455; 80048; 80053; 81001; 81003; 81015; 81025; 85025; 85652; 86038; 86225; 87086; 87338; 90471; 90732; 94640; 94664; 96361; 96365; 96372; 96374; 96375; 96376; G0009; J0295; J0696; J1170; J1885; J2270; J3010; J3360; J3490; J7512; J7620; Q0162; Q9966

== ENCOUNTER 2019-05-13 14:00 | Inpatient (IN) | payer BC ==
[2019-05-13 14:47] VITALS: BMI 45.1
--- NOTE | 2019-05-14 10:40 | HP ---
ADDENDUM: This is an addendum to history and physical #[id number] dictated on 05/28/2018. HISTORY OF PRESENT ILLNESS: Yoselyn Hung is a 43-year-old female undergoing evaluation for gastric bypass, with GERD and morbid obesity. When I first saw her, she is 5 feet 5 inches, 299 pounds, BMI 49.8. Today, 280 pounds, BMI 46 and potentially losing weight successfully nearly 20 pounds. She has seen our psychologist gone through a medically supervised weight loss program and then presents for laparoscopic sleeve gastrectomy. She has attended our dietary session and we will plan laparoscopic sleeve gastrectomy next week. She understands risks and benefits and understands the perioperative dietary changes necessary for good results and is willing to participate in postoperative followup and support groups for durable weight loss results. MEDICATIONS: 1. Dexilant. 2. Albuterol. 3. Gabapentin. PAST MEDICAL HISTORY: Ear infections, UTIs, recently hospitalized, seen by Dr. Rothman and placed on Macrobid, asthma, reflux, hypothyroidism treated medically, anemia, anxiety for which she controls well without medications. PAST SURGICAL HISTORY: T and A, ear surgery, hysterectomy in 2008, laparoscopic cholecystectomy 2011, laparoscopic appendectomy 24 years of age, and kidney surgery 4 years of age. FAMILY HISTORY: Nothing significant. REVIEW OF SYSTEMS: Ten-point noncontributory. 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 She is . Tobacco and alcohol, none. ALLERGIES: NONE. PHYSICAL EXAMINATION: VITAL SIGNS: Height 5 feet 5 inches, weight 299 pounds, and BMI 49 when I saw her in April 2018. Today, weight 180 pounds, BMI 46, height 5 feet 5 inches. Blood pressure 120/75, heart rate 88, and temperature 97.8 degrees. HEAD, EARS, EYES, NOSE, AND THROAT: Unremarkable. LUNGS: Clear to auscultation. CARDIAC: Regular rate and rhythm without murmur or gallop. ABDOMEN: Soft and nontender. No masses. Obese. EXTREMITIES: Unremarkable. No ankle edema. ASSESSMENT: 1. Morbid obesity. 2. Gastroesophageal reflux disease symptoms. PLAN: Laparoscopic gastric bypass. She understands the risks, benefits, and consents. Job ID: [id number]
[2019-05-19] MEDS ORDERED: cefOXitin 2 GM VIAL ONE (06:17)
[2019-05-19] MEDS ORDERED: Sodium Chloride 0.9% 100 ML ONE (06:17)
[2019-05-19] MEDS ORDERED: Heparin 5,000 UNITS/ML VIAL ONE (06:18)
[2019-05-19] MEDS ORDERED: Ketorolac Tromethamine 30 MG/ML VIAL ONE (06:18)
[2019-05-19] MEDS ORDERED: Scopolamine 1.5 mg/72 hour Patch ONE (06:18)
[2019-05-19] MEDS ORDERED: Fentanyl 100 MCG/2 ML VIAL ONE ×2 (06:22→10:11)
[2019-05-19] MEDS ORDERED: Bupivacaine 0.25% HCL 30 ML VIAL ONE (06:46)
[2019-05-19] MEDS ORDERED: Lidocaine 1% w/Epinephrine 1:100K 20 ML VIAL ONE (06:46)
[2019-05-19] MEDS ORDERED: Ondansetron HCl/PF 4 MG/2 ML Vial IVP PRN (08:18)
[2019-05-19] MEDS ORDERED: Promethazine HCl 25 MG/ML VIAL SLOW IVP PRN (08:18)
[2019-05-19] MEDS ORDERED: Promethazine HCl 25 MG/ML VIAL IM PRN (08:18)
[2019-05-19] MEDS ORDERED: SUGAMMADEX SODIUM 200 MG/2 ML VIAL ONE (09:19)
[2019-05-19] MEDS ORDERED: Rocuronium Bromide 10 MG/ML (10ML VIAL) ONE (09:38)
[2019-05-19] MEDS ORDERED: PROPOFOL 200 MG/20 ML VIAL ONE (09:38)
[2019-05-19] MEDS ORDERED: Dexamethasone 20 MG/5 ML VIAL ONE (09:38)
[2019-05-19] MEDS ORDERED: Lidocaine 1% PF 5 ML VIAL ONE (09:38)
[2019-05-19] MEDS ORDERED: Ondansetron PF 4 MG/2 ML Vial ONE (09:38)
[2019-05-19] MEDS ORDERED: Morphine 2 MG/ML SYRINGE SLOW IVP PRN (09:49)
[2019-05-19] MEDS ORDERED: hydrALAZINE 20 MG/ML VIAL SLOW IVP PRN (09:49)
[2019-05-19] MEDS ORDERED: Ondansetron PF 4 MG/2 ML Vial IVP PRN (09:49)
[2019-05-19] MEDS ORDERED: diphenhydrAMINE 50 MG/ML VIAL IVP PRN (09:49)
[2019-05-19] MEDS ORDERED: Albuterol Sulfate 2.5 mg/3 ml Neb NEB PRN (09:53)
[2019-05-19] MEDS ORDERED: Temazepam 15 MG CAP PO PRN (09:53)
[2019-05-19] MEDS ORDERED: Promethazine HCl 25 MG/ML VIAL ONE (10:07)
[2019-05-19] MEDS ORDERED: Sodium Chloride 0.9% (PF) 10 ML VIAL FS PRN (10:21)
[2019-05-19] MEDS ORDERED: hydrALAZINE 20 MG/ML VIAL ONE (10:29)
[2019-05-19] MEDS: D5 1/2 NS w/20 mEq KCL 1,000 ML IV SCH ×2 (11:26→17:56)
[2019-05-19] MEDS: Acetaminophen 1,000 MG in Premix Bag 1 BAG IVPB SCH ×3 (11:27→23:32)
[2019-05-19] MEDS: Ketorolac Tromethamine 30 MG/ML VIAL IVP SCH ×3 (11:27→23:33)
--- NOTE | 2019-05-19 11:42 | OP ---
DATE OF PROCEDURE: 05/19/2019 PREOPERATIVE DIAGNOSES: Morbid obesity, sleep apnea, gastroesophageal reflux disease, asthma, 5 foot 5 inches, 299 pounds, 49 BMI when first seen, preoperative weight 280 pounds, 46 BMI. PROCEDURES PERFORMED: Laparoscopic Teresa-en-Y gastric bypass, 100 cm antecolic Teresa limb, 25 mm EEA stapler. BENCH SCIENTIST: Elena Antony MD ANESTHESIA: General anesthesia, local 0.25% Marcaine with epinephrine, 60 mL. DESCRIPTION OF PROCEDURE: The patient was taken to the operating room where under general anesthesia, abdomen was prepared with ChloraPrep and draped in routine fashion. All port sites localized with anesthetic. Supraumbilical incision made through an old scar, carried down through skin and subcutaneous tissue and Veress needle established. Pneumoperitoneum to 15 mmHg. The laparoscope inserted. Bilateral upper abdominal midclavicular incision was made and a 15 mm port placed on the left and a 12 mm port placed on the right. Bilateral far lateral subcostal upper abdominal incision made and a 5 port placed. Subxiphoid incision made and Evan retractor placed, reflecting the left lobe of the liver, held in place with Loy's arm visualizing the angle of His, noting absence of a hiatal hernia. Omentum split in the midline up to the transverse colon just to the left of midline using the LigaSure. The omentum reflected cephalad and transverse colon reflected anterior. Ligament of Treitz identified in the small bowel 20 cm from the ligament of Treitz, divided with a ODALIS white load stapler. Mesentery divided with another fire of the ODALIS stapler. Hemostasis gained with cautery. Teresa limb devascularized about 5 cm and 100 cm Teresa limb measured and an enteroenterostomy performed between the biliary limb and the Teresa limb with a single fire of the ODALIS white load stapler. Common defect closed with 2 fires of the white load stapler. Mesenteric defect closed with 3-0 Vicryl and the Teresa limb traced up to the end, which had been devascularized, reflected cephalad and patient placed in reverse Trendelenburg and omentum reflected caudally. The angle of His identified and the gastroesophageal junction on the lesser curvature identified and 4 cm from the GE junction, The gastrohepatic ligament taken down adjacent to the lesser curvature and the lesser sac entered using blunt dissection and LigaSure for hemostasis and a single fire of the blue load stapler fired transversely across the stomach creating the first fire of the gastric pouch. All stomach instrumentation had been removed by Anesthesia. A gastrostomy then made along the greater curvature below the level of this initial gastric pouch stapler fire and through this gastrostomy, a 25 mm EEA anvil was placed up towards the gastric pouch and to the suture attached a band passer 5 mm was placed, directing it up adjacent to the staple line and the gastric pouch and the opening was made with the cutting current of the cautery as the suture was grasped, pulling the anvil out the gastric pouch. At this point, the gastrostomy was closed with a single fire of the blue load stapler and gastric pouch partitions completed with serial fires of the blue load stapler, angled up towards just to the patient's left of the angle of His, avoiding the gastroesophageal junction, completing this pouch formation with complete division of the stomach. Once this was accomplished, the spike was removed from the anvil and the Teresa limb was oriented and opened on the devascularized segment and a 25 mm EEA stapler threaded to the antimesenteric portion of the Teresa limb, advancing the post and connecting it to the anvil and gastric pouch, noting proper orientation as the stapler was approximated in the torque fire range and fired, loosened and 2 complete donuts removed and devascularized into the small bowel, resected with another fire of the white load stapler. The gastrojejunostomy looked excellent. There was no bleeding. Three sutures placed 3-0 Vicryl seromuscular proximally, left posterolateral, right posterolateral and right anterior lateral, stomach, pouch and small bowel. The anastomosis was checked under water with orogastric tube placed by Anesthesia and visualized laparoscopically, directed towards the small bowel side of the gastrojejunostomy and outlet of the small bowel occluded with the atraumatic bowel clamp and this was checked under water and there were no leaks. Gastric tube removed. Good hemostasis noted. The 15 mm port site closed with a GraNee needle 0 Vicryl. Liver retractor removed. All irrigant and pneumoperitoneum evacuated after noting good hemostasis and counts correct. All skin incisions irrigated and approximated with subdermal 4-0 Monocryl and [place] glue applied. Job ID: [id number]
[2019-05-19] MEDS: Morphine 4 MG/ML VIAL SLOW IVP PRN ×2 (14:55→20:32)
[2019-05-19] MEDS: Mometasone 100 MCG HFA INHALER INH SCH (19:00)
[2019-05-19] MEDS: PROVENTIL INHALER 6.7 G (200 INHALATIONS) INH SCH (19:00)
[2019-05-19] MEDS ORDERED: Enoxaparin Sodium 40 MG/0.4 ML SYRINGE SC SCH (21:00)
[2019-05-20] MEDS: D5 1/2 NS w/20 mEq KCL 1,000 ML IV SCH ×2 (03:30→11:17)
[2019-05-20 05:02] LABS: #Eosinphils 0.1 thou/uL (0.0-0.7); #Neutrophils 10.6 thou/uL (1.40-6.50); %Basophils 0.2 % (0.0-1.0); %Eosinophils 0.4 % (0.0-10.0); %Lymphocytes 14.9 % (21.0-51.0); %Monocytes 7.3 % (0.0-10.0); %Neutrophils 77.1 % (42.0-75.0); Hemoglobin 12.3 g/dL (12.0-16.0); Mean Corpuscular HGB CONC 33.4 g/dL (32.0-36.0); Mean Corpuscular Hemoglobin 28.2 pg (27.0-31.0); Mean Corpuscular Volume 84.5 fL (78.0-98.0); Mean Platelet Volume 8.3 fL (7.4-10.4); Platelet Count 264 thou/uL (130-400); RBC Distribution Width 13.2 % (11.5-14.5); Red Blood Cell (RBC) Count 4.37 mill/uL (4.20-5.40); White Blood Cell (WBC) Count 13.7 thou/uL (4.8-10.8)
[2019-05-20 05:21] LABS: Anion Gap 9 mmol/L (10-20); BUN (Urea Nitrogen) 7 mg/dL (7.0-18.7); Calc. Creatinine Clearance 212 mL/min (70-130); Calcium 8.7 mg/dL (7.8-10.44); Carbon Dioxide 23 mmol/L (22-29); Chloride 110 mmol/L (98-107); Estimated GFR-MDRD Greater than 90; Glucose 125 mg/dL (70-105); Potassium 4.1 mmol/L (3.5-5.1); Sodium 138 mmol/L (136-145)
[2019-05-20] MEDS: Ketorolac Tromethamine 30 MG/ML VIAL IVP SCH ×2 (06:29→13:44)
[2019-05-20] MEDS: Acetaminophen 1,000 MG in Premix Bag 1 BAG IVPB SCH (06:32)
[2019-05-20] MEDS: Mometasone 100 MCG HFA INHALER INH SCH (08:02)
[2019-05-20] MEDS: PROVENTIL INHALER 6.7 G (200 INHALATIONS) INH SCH (08:02)
[2019-05-20] MEDS ORDERED: Pantoprazole 40 MG VIAL IVP SCH (09:00)
[2019-05-20] MEDS ORDERED: Non-Formulary Item 1 EACH (Dexlansoprazole [Dexilant] 60 MG) PO SCH (09:00)
[2019-05-20] MEDS ORDERED: Hydrocodone-Acetamin 15 ML UDCUP PO PRN (10:15)
[2019-05-20 15:07] VITALS: BP 149/82; TEMP 98.1
--- NOTE | 2019-05-21 05:20 | DIS ---
DATE OF ADMISSION: 05/19/2019 DATE OF DISCHARGE: 05/20/2019 DISCHARGE DIAGNOSIS: Morbid obesity. At initial visit, 5 feet 5 inches, 299 pounds, BMI 49.8. Preop visit, 280 pounds, BMI 46, on preoperative weight loss program. Comorbidities of GERD, asthma, and JAYJAY. PROCEDURES THIS HOSPITALIZATION: Laparoscopic Teresa-en-Y gastric bypass, 100 cm Teresa limb antecolic, 25 mm EEA stapler. No stapler strips used. HISTORY: 43-year-old female, desiring bariatric surgery, is an appropriate candidate, completed our preoperative assessment and evaluation and educational programs, presents for above-mentioned surgery, undergoing that without problems, convalesced and tolerating her bariatric liquid diet. She is well aware and educated about bariatric diet advancement protocol which she will follow. She is sent home on Lortab Elixir #300 mL. She will resume her home medications. Diet and activity as described. No activity restrictions. No lifting restrictions. Encouraged her to be ambulatory frequently and out of bed frequently. She is motivated and very excited about her new journey. She will follow up with me in 1 to 2 weeks. Job ID: [id number]
== END 2019-05-20 16:12 | disposition home or self-care (01) | DRG 621 ==
LOC: SURG A 05-19 06:09
PROVIDERS: ADMIT Specialist; ATTEND Specialist
PROC: 0D164ZA Bypass Stomach to Jejunum, Percutaneous Endoscopic Approach (ICD-10-PCS; principal; 2019-05-19)
DX: E66.01 Morbid (severe) obesity due to excess calories (principal); G47.30 Sleep apnea, unspecified; J45.909 Unspecified asthma, uncomplicated; K21.9 Gastro-esophageal reflux disease without esophagitis; E03.9 Hypothyroidism, unspecified; Z68.42 Body mass index [BMI] 45.0-49.9, adult; Z79.899 Other long term (current) drug therapy; Z90.49 Acquired absence of other specified parts of digestive tract
CPT/HCPCS: 36415; 80048; 85025; 94640; 94760; C9113; J0131; J0360; J0694; J1100; J1644; J1650; J1885; J2001; J2270; J2405; J2550; J2704; J3010; J3490; J7620; S0020

== ENCOUNTER 2019-12-24 09:03 | Outpatient (CLI) | payer OTHER, BC ==
--- NOTE | 2019-12-24 12:07 | BD ---
DEXA BONE DENSITY STUDY: HISTORY: Postmenopausal. FINDINGS: Lumbar Spine: BMD (g/cm2) L1 1.025 T-Score: +0.3 L2 1.047 T-Score: +0.2 L3 1.112 T-Score: +0.3 L4 1.175 T-Score: +1.1 L1-L4 1.097 T-Score: +0.5 Femoral Neck: 0.826 T-Score: -0.2 Total Femur: 1.106 T-Score: +1.3 Impression: Normal bone mineral density of the lumbar spine and left femoral neck. POS: [facility]
--- NOTE | 2019-12-27 16:18 | MMO ---
Bilateral MAMMO Bilat Screen [facility]. CLINICAL HISTORY: Patient is 44 years old and is seen for screening. The patient has no family history of breast cancer. The patient has no personal history of cancer. VIEWS: The views performed were: bilateral craniocaudal with tomosynthesis and bilateral mediolateral oblique with tomosynthesis. FILMS COMPARED: The present examination has been compared to prior imaging studies performed at This study has been interpreted with the assistance of computer-aided detection. MAMMOGRAM FINDINGS: There are scattered fibroglandular densities. There are stable benign appearing calcifications seen in both breasts. There are no suspicious masses, suspicious calcifications, or new areas of architectural distortion. IMPRESSION: THERE IS NO MAMMOGRAPHIC EVIDENCE OF MALIGNANCY. A ROUTINE FOLLOW-UP MAMMOGRAM IN 1 YEAR IS RECOMMENDED. THE RESULTS OF THIS EXAM WERE SENT TO THE PATIENT. ACR BI-RADS Category 2 - Benign finding MAMMOGRAPHY NOTE: 1. A negative mammogram report should not delay a biopsy if a dominant of clinically suspicious mass is present. 2. Approximately 10% to 15% of breast cancers are not detected by mammography. 3. Adenosis and dense breasts may obscure an underlying neoplasm. Reported by: JANE AYALA MD Electonically Signed: [id number]
== END 2019-12-24 09:04 | disposition home or self-care (01) ==
LOC: BICMAMMO 09:03
PROVIDERS: ATTEND Specialist
DX: Z12.31 Encounter for screening mammogram for malignant neoplasm of breast (principal); M81.0 Age-related osteoporosis without current pathological fracture
CPT/HCPCS: 77063; 77067; 77080

== ENCOUNTER 2021-05-04 08:08 | Outpatient (CLI) | payer BC | END 2021-05-04 08:09 | disposition home or self-care (01) | LOC: BICMAMMO 08:08 | PROVIDERS: ATTEND Specialist | DX: Z12.31 Encounter for screening mammogram for malignant neoplasm of breast (principal); M81.0 Age-related osteoporosis without current pathological fracture | CPT/HCPCS: 77063; 77067; 77080 ==

== ENCOUNTER 2022-08-07 08:28 | Outpatient (CLI) | payer BC | END 2022-08-07 08:29 | disposition home or self-care (01) | LOC: BICRAD 08:28 | PROVIDERS: ATTEND Specialist | DX: R06.00 Dyspnea, unspecified (principal); R91.8 Other nonspecific abnormal finding of lung field | CPT/HCPCS: 71046 ==

== ENCOUNTER 2024-02-17 07:30 | Outpatient (CLI) | payer BC ==
[2024-02-17] MEDS ORDERED: E-Z-HD 98% W/W 340GM BOT (x-ray ONLY) ONE (07:46)
[2024-02-17] MEDS ORDERED: Barium Sulfate 96% 176 GM BOT (xray ONLY) ONE ×2 (07:46→10:49)
== END 2024-02-17 07:31 | disposition home or self-care (01) ==
LOC: RAD 07:30
PROVIDERS: ATTEND Internal Medicine Gastroenterology
DX: K52.9 Noninfective gastroenteritis and colitis, unspecified (principal); R93.3 Abnormal findings on diagnostic imaging of other parts of digestive tract; E66.9 Obesity, unspecified; Z98.84 Bariatric surgery status
CPT/HCPCS: 74240

== ENCOUNTER 2024-05-21 07:39 | Outpatient (CLI) | payer BC | END 2024-05-21 07:40 | disposition home or self-care (01) | LOC: BICCT 07:39 | PROVIDERS: ATTEND Specialist | DX: J45.50 Severe persistent asthma, uncomplicated (principal) | CPT/HCPCS: 71250 ==

== ENCOUNTER 2024-07-21 14:42 | Outpatient (CLI) | payer BC | END 2024-07-21 14:43 | disposition home or self-care (01) | LOC: RAD 14:42 | PROVIDERS: ATTEND Internal Medicine | DX: R06.00 Dyspnea, unspecified (principal) | CPT/HCPCS: 71046 ==